=== PATIENT | female | born 1960 | race Caucasian/White ===

== ENCOUNTER 2020-11-10 13:47 | Inpatient (IN) ==
[2020-11-10] MEDS ORDERED: Celecoxib 200 MG CAPSULE PO ONE (13:50)
[2020-11-10] MEDS ORDERED: CeFAZolin Syr 2,000MG/20 ML 2,000 MG/20 ML SYRINGE IVPB ONE (14:21)
[2020-11-10] MEDS ORDERED: *HR* Labetalol 20 MG/4 ML SYRINGE IVP PRN (14:22)
[2020-11-10] MEDS ORDERED: *HR* OxyCODONE Immed Rel 5 MG TABLET PO PRN ×2 (14:22→17:41)
[2020-11-10] MEDS ORDERED: Ondansetron 4 MG/2 ML VIAL IVP PRN ×2 (14:22→17:41)
[2020-11-10] MEDS ORDERED: *HR* HYDROmorphone (PF) 1 MG/ML SYRINGE IVP PRN (14:22)
[2020-11-10] MEDS ORDERED: Ethanol\\Acetic Acid\\Na Ace\\Ben 1,000 ML IRRIG.SOLN IR ONE (14:24)
[2020-11-10] MEDS ORDERED: *HR* PHENYLEPHRINE 1,000 MCG/10 ML SYRINGE IVP ONE ×2 (14:24→15:39)
[2020-11-10] MEDS ORDERED: Vancomycin 1,000 MG VIAL ONE (14:24)
[2020-11-10] MEDS ORDERED: *HR* Succinylcholine 200 MG/10 ML VIAL IVP ONE (14:24)
[2020-11-10] MEDS ORDERED: Dexamethasone 4 MG/ML VIAL ONE (14:24)
[2020-11-10] MEDS ORDERED: Ondansetron 4 MG/2 ML VIAL ONE (14:24)
[2020-11-10] MEDS ORDERED: Lidocaine -MPF 4% 5 ML AMPUL ONE (14:24)
[2020-11-10] MEDS ORDERED: Lidocaine -MPF 2% 2 ML VIAL ONE (14:24)
[2020-11-10] MEDS ORDERED: *HR* FentaNYL (PF) 100 MCG/2 ML VIAL ONE (14:26)
[2020-11-10] MEDS ORDERED: *HR* Propofol 200 MG/20 ML VIAL IVP ONE (14:26)
[2020-11-10] MEDS ORDERED: *HR* Midazolam HCl 2 MG/2 ML VIAL ONE (14:30)
[2020-11-10] MEDS ORDERED: Ringers Solution, Lactated 1,000 ML IVC SCH ×2 (14:30→17:41)
[2020-11-10] MEDS ORDERED: Ropivacaine/PF 0.5% 30 ML VIAL ONE (14:36)
[2020-11-10 15:02] LABS: Hematocrit 38.9 % (35.3-44.9); Hemoglobin 12.8 g/dL (11.5-15.4)
[2020-11-10 15:15] LABS: eGFR For African Americans > 60 (> 60); eGFR For Non-African Americans > 60 (> 60)
[2020-11-10 16:56] LABS: Hemoglobin 11.6 g/dL (11.5-15.4)
[2020-11-10] MEDS ORDERED: Povidone-Iodine 45 ML, Sodium Chloride IRRigation 1,000 ML IR ONE (17:15)
[2020-11-10] MEDS ORDERED: Dextrose Gel 15 GM/37.5 ML TUBE PO PRN ×2 (17:41)
[2020-11-10] MEDS ORDERED: Sennosides 8.6 MG TABLET PO PRN (17:41)
[2020-11-10] MEDS ORDERED: Nitroglycerin 0.4 MG TAB.SUBL SL PRN (17:41)
[2020-11-10] MEDS ORDERED: MOM Conc 10 ML UD.LIQ PO PRN (17:41)
[2020-11-10] MEDS ORDERED: D5% in Water 1,000 ML IVC PRN (17:41)
[2020-11-10] MEDS ORDERED: Naloxone 0.4 MG/ML INJ IVP PRN (17:41)
[2020-11-10] MEDS ORDERED: *HR* Dextrose 50 % in Water (Vial) 50 ML VIAL IVP PRN (17:41)
[2020-11-10] MEDS ORDERED: *HR* Enoxaparin 30 MG/0.3 ML SYRINGE SQ SCH (18:00)
[2020-11-10] MEDS: Insulin LISPRO 300 UNITS/3 ML VIAL SUBQ SCH (18:19)
[2020-11-10] MEDS: *HR* Enoxaparin 30 MG/0.3 ML SYRINGE SQ SCH (18:27)
[2020-11-10] MEDS: CeFAZolin 2 GM/120 ML BAG IVPB SCH (20:01)
[2020-11-10] MEDS ORDERED: Insulin LISPRO 300 UNITS/3 ML VIAL SUBQ SCH (21:00)
[2020-11-10] MEDS: *HR* OxyCODONE/APAP 5/325 TABLET PO PRN (22:51)
[2020-11-11 03:28] LABS: Hematocrit 34.4 % (35.3-44.9); Hemoglobin 11.3 g/dL (11.5-15.4)
[2020-11-11 03:54] LABS: BUN/Creatinine Ratio 26 (6-26); Blood Urea Nitrogen 18 mg/dL (8-23); Calcium 8.6 mg/dL (8.6-10.3); Carbon Dioxide 28 mEq/L (23-29); Chloride 104 mEq/L (98-107); Glucose 193 mg/dL (70-105); Osmolality,Calculated 295 (280-300); Sodium 139 mEq/L (136-145); eGFR For African Americans > 60 (> 60); eGFR For Non-African Americans > 60 (> 60)
[2020-11-11] MEDS: *HR* Enoxaparin 30 MG/0.3 ML SYRINGE SQ SCH (04:36)
[2020-11-11] MEDS: CeFAZolin 2 GM/120 ML BAG IVPB SCH (06:32)
[2020-11-11] MEDS: Insulin LISPRO 300 UNITS/3 ML VIAL SUBQ SCH (08:32)
[2020-11-11] MEDS: *HR* OxyCODONE/APAP 5/325 TABLET PO PRN (08:53)
[2020-11-11 11:24] VITALS: BP 106/69
== END 2020-11-11 12:49 | disposition home or self-care (01) | DRG 483 ==
LOC: SAMDAY 13:47 → 3NENU 17:23
PROVIDERS: ADMIT Orthopaedic Surgery; ATTEND Orthopaedic Surgery